=== PATIENT | male | born 1955 | race Hispanic/Latino ===

== ENCOUNTER 2017-08-09 12:00 | Outpatient (CLI) | payer BC | END 2017-08-09 12:01 | disposition home or self-care (01) | LOC: BICCT 12:00 | PROVIDERS: ATTEND Physician Assistant Medical | DX: M79.672 Pain in left foot (principal); M25.512 Pain in left shoulder; M19.012 Primary osteoarthritis, left shoulder; M19.072 Primary osteoarthritis, left ankle and foot ==

== ENCOUNTER 2019-01-09 09:12 | Outpatient (CLI) | payer BC ==
--- NOTE | 2019-01-09 11:11 | RAD ---
Radiograph right ribs 3 views: DATE: 01/09/2019 HISTORY: 63-year-old male with initial encounter for acute traumatic right rib pain from fall. FINDINGS: No fracture identified. IMPRESSION: Negative
== END 2019-01-09 09:13 | disposition home or self-care (01) ==
LOC: BICRAD 09:12
PROVIDERS: ATTEND Nurse Practitioner Family
DX: Z04.3 Encounter for examination and observation following other accident (principal); W19.XXXA Unspecified fall, initial encounter

== ENCOUNTER 2022-04-20 01:45 | Inpatient (IN) | payer BC, MEDICARE, SELFPAY ==
[2022-04-20] MEDS ORDERED: Ketorolac Tromethamine 30 MG/ML VIAL ONE (02:04)
[2022-04-20] MEDS ORDERED: Ondansetron PF 4 MG/2 ML Vial ONE (02:04)
[2022-04-20 02:15] LABS: Hemoglobin 15.3 g/dL (14.0-18.0); Mean Corpuscular HGB CONC 33.2 g/dL (32.0-36.0); Mean Corpuscular Hemoglobin 30.1 pg (27.0-31.0); Mean Corpuscular Volume 90.7 fl (78.0-98.0); Mean Platelet Volume 7.9 fL (7.4-10.4); Platelet Count 182 10x3/uL (130-400); RBC Distribution Width 12.1 % (11.5-14.5); Red Blood Cell (RBC) Count 5.07 mill/uL (4.70-6.10); White Blood Cell (WBC) Count 22.2 10x3/uL (4.8-10.8)
[2022-04-20 02:38] LABS: ALT (SGPT) 15 U/L (8-55); AST (SGOT) 18 U/L (5-34); Albumin 4.2 g/dL (3.4-4.8); Alkaline Phosphatase 106 U/L (40-110); Anion Gap 17 mmol/L (10-20); BUN (Urea Nitrogen) 16 mg/dL (8.4-25.7); Bilirubin, Total 2.7 mg/dL (0.2-1.2); Calc. Creatinine Clearance 0 mL/min (70-130); Calcium 9.7 mg/dL (7.8-10.44); Carbon Dioxide 24 mmol/L (23-31); Chloride 97 mmol/L (98-107); Estimated GFR 82; Globulin 3.7 g/dL (2.4-3.5); Glucose 298 mg/dL (80-115); Lipase 8 U/L (8-78); Potassium 3.8 mmol/L (3.5-5.1); Protein, Total 7.9 g/dL (5.8-8.1); Sodium 134 mmol/L (136-145)
[2022-04-20 02:51] LABS: Band 10 % (5-11); Lymphocytes 2 % (21-51); MDiff Complete? YES; Monocytes 12 % (0-10); Neutrophil 75 % (42-75); Platelet Morphology Comment Appears Adequate; RBC Morphology Normal; Reactive Lymphocytes 1 % (0-10)
[2022-04-20] MEDS ORDERED: Piperacillin/Tazobactam 3.375 GM VIAL ONE (04:16)
[2022-04-20] MEDS ORDERED: Ondansetron PF 4 MG/2 ML Vial IVP PRN (04:41)
[2022-04-20] MEDS ORDERED: Acetaminophen 325 MG TAB PO PRN (04:41)
[2022-04-20] MEDS ORDERED: Dextrose 5% in Water 1,000 ML IV PRN (04:42)
[2022-04-20] MEDS ORDERED: HumaLOG 300 UNITS/3 ML VIAL SC PRN (04:42)
[2022-04-20] MEDS ORDERED: Dextrose 50% Abboject 50 ML SYRINGE SLOW IVP PRN (04:42)
[2022-04-20] MEDS: Morphine 4 MG/ML VIAL SLOW IVP PRN ×3 (06:43→19:48)
[2022-04-20 07:24] VITALS: BMI 41.3
[2022-04-20] MEDS: Piperacillin/Tazobactam 3.375 GM in Sodium Chloride 0.9% 100 ML IVPB SCH ×3 (08:13→23:53)
[2022-04-20] MEDS ORDERED: Insulin Glargine 30 UNITS/0.3 ML VIAL SC SCH (10:45)
[2022-04-20] MEDS ORDERED: busPIRone HCl 10 MG TAB PO SCH (12:45)
[2022-04-20] MEDS ORDERED: HYDROcodone/Acetaminophen 7.5/325 mg Tablet PO PRN (15:51)
[2022-04-20] MEDS: Insulin Glargine 30 UNITS/0.3 ML VIAL SC SCH (21:15)
[2022-04-20] MEDS: busPIRone HCl 10 MG TAB PO SCH (21:15)
[2022-04-20] MEDS: Gabapentin 100 MG CAP PO SCH (21:15)
[2022-04-21] MEDS: Morphine 4 MG/ML VIAL SLOW IVP PRN ×3 (04:12→16:24)
[2022-04-21] MEDS: Levothyroxine Sodium 100 MCG TAB PO SCH (05:56)
[2022-04-21 07:16] LABS: ALT (SGPT) 32 U/L (8-55); AST (SGOT) 38 U/L (5-34); Albumin 3.7 g/dL (3.4-4.8); Alkaline Phosphatase 157 U/L (40-110); Anion Gap 17 mmol/L (10-20); BUN (Urea Nitrogen) 31 mg/dL (8.4-25.7); Bilirubin, Total 3.3 mg/dL (0.2-1.2); Calc. Creatinine Clearance 105 mL/min (70-130); Calcium 9.7 mg/dL (7.8-10.44); Carbon Dioxide 25 mmol/L (23-31); Chloride 97 mmol/L (98-107); Estimated GFR 63; Glucose 280 mg/dL (80-115); Potassium 3.9 mmol/L (3.5-5.1); Protein, Total 7.7 g/dL (5.8-8.1); Sodium 135 mmol/L (136-145)
[2022-04-21 07:24] LABS: Hemoglobin 15.7 g/dL (14.0-18.0); Mean Corpuscular HGB CONC 32.5 g/dL (32.0-36.0); Mean Corpuscular Volume 92.4 fl (78.0-98.0); Mean Platelet Volume 8.5 fL (7.4-10.4); Platelet Count 217 10x3/uL (130-400); Red Blood Cell (RBC) Count 5.23 mill/uL (4.70-6.10); White Blood Cell (WBC) Count 25.1 10x3/uL (4.8-10.8)
[2022-04-21] MEDS: Piperacillin/Tazobactam 3.375 GM in Sodium Chloride 0.9% 100 ML IVPB SCH ×3 (07:56→23:43)
[2022-04-21] MEDS: busPIRone HCl 10 MG TAB PO SCH ×2 (07:57→21:22)
[2022-04-21] MEDS: Insulin Glargine 30 UNITS/0.3 ML VIAL SC SCH ×2 (07:57→22:41)
[2022-04-21] MEDS ORDERED: Escitalopram Oxalate 10 mg Tablet PO SCH (09:00)
[2022-04-21] MEDS ORDERED: ALPRAZolam 0.25 MG TAB PO PRN (09:19)
[2022-04-21 09:44] LABS: Band 5 % (5-11); Lymphocytes 6 % (21-51); MDiff Complete? YES; Monocytes 4 % (0-10); Neutrophil 84 % (42-75); Platelet Morphology Comment Appears Adequate; Polychromasia SLIGHT = 2-3 cells (100X) (0-2/hpf)
[2022-04-21] MEDS: Sodium Chloride 0.9% 1,000 ML IV SCH (10:46)
[2022-04-21] MEDS ORDERED: Iopamidol 30 ML ONE (17:47)
[2022-04-21] MEDS ORDERED: Indomethacin 50 MG SUPP ONE ×2 (17:49→17:51)
[2022-04-21] MEDS ORDERED: fentaNYL PF 100 MCG/2 ML SYRINGE ONE (17:49)
[2022-04-21] MEDS ORDERED: Lidocaine 4% Topical Sol 50 ML BOT ONE (18:11)
[2022-04-21] MEDS ORDERED: Metoprolol Tartrate 5 MG/5 ML VIAL ONE (19:23)
[2022-04-21 19:46] LABS: Hemoglobin 14.7 g/dL (14.0-18.0); Mean Corpuscular HGB CONC 32.9 g/dL (32.0-36.0); Mean Corpuscular Volume 91.2 fl (78.0-98.0); Mean Platelet Volume 8.4 fL (7.4-10.4); Platelet Count 188 10x3/uL (130-400); White Blood Cell (WBC) Count 20.9 10x3/uL (4.8-10.8)
[2022-04-21 20:04] LABS: Anion Gap 11 mmol/L (10-20); BUN (Urea Nitrogen) 28 mg/dL (8.4-25.7); Calc. Creatinine Clearance 139 mL/min (70-130); Calcium 9.4 mg/dL (7.8-10.44); Carbon Dioxide 27 mmol/L (23-31); Chloride 102 mmol/L (98-107); Estimated GFR 89; Glucose 238 mg/dL (80-115); Magnesium 1.8 mg/dL (1.6-2.6); Potassium 3.8 mmol/L (3.5-5.1); Sodium 136 mmol/L (136-145)
[2022-04-21 20:07] LABS: Band 8 % (5-11); Lymphocytes 2 % (21-51); MDiff Complete? YES; Monocytes 6 % (0-10); Neutrophil 84 % (42-75); Platelet Morphology Comment Appears Adequate; RBC Morphology Normal
[2022-04-21] MEDS: Gabapentin 100 MG CAP PO SCH (21:22)
[2022-04-21] MEDS ORDERED: Magnesium 2 GM/50 ML(in water) 2 GM in Premix Bag 1 BAG IVPB SCH (21:45)
[2022-04-21] MEDS ORDERED: methylPREDNISolone Sod Succ/PF 125 MG/2 ML VIAL IVP SCH (23:15)
[2022-04-22 00:41] LABS: SARS-CoV-2 NAA Rapid Test Not Detected (NotDetected)
[2022-04-22] MEDS: Levothyroxine Sodium 100 MCG TAB PO SCH (06:03)
[2022-04-22 07:39] LABS: #Lymphocytes 0.5 thou/uL (1.20-3.40); #Monocytes 0.5 thou/uL (0.11-0.59); #Neutrophils 14.7 thou/uL (1.40-6.50); %Lymphocytes 3.1 % (21.0-51.0); %Neutrophils 93.9 % (42.0-75.0); Hemoglobin 14.3 g/dL (14.0-18.0); Mean Corpuscular HGB CONC 31.8 g/dL (32.0-36.0); Mean Corpuscular Hemoglobin 29.5 pg (27.0-31.0); Mean Corpuscular Volume 92.7 fl (78.0-98.0); Mean Platelet Volume 8.6 fL (7.4-10.4); Platelet Count 190 10x3/uL (130-400); RBC Distribution Width 11.9 % (11.5-14.5); Red Blood Cell (RBC) Count 4.85 mill/uL (4.70-6.10); White Blood Cell (WBC) Count 15.7 10x3/uL (4.8-10.8)
[2022-04-22 08:02] LABS: ALT (SGPT) 41 U/L (8-55); AST (SGOT) 66 U/L (5-34); Albumin 3.1 g/dL (3.4-4.8); Alkaline Phosphatase 202 U/L (40-110); Anion Gap 14 mmol/L (10-20); BUN (Urea Nitrogen) 30 mg/dL (8.4-25.7); Bilirubin, Total 2.3 mg/dL (0.2-1.2); Calc. Creatinine Clearance 139 mL/min (70-130); Calcium 9.1 mg/dL (7.8-10.44); Carbon Dioxide 25 mmol/L (23-31); Chloride 100 mmol/L (98-107); Estimated GFR 89; Globulin 3.7 g/dL (2.4-3.5); Glucose 300 mg/dL (80-115); Potassium 3.9 mmol/L (3.5-5.1); Protein, Total 6.8 g/dL (5.8-8.1); Sodium 135 mmol/L (136-145)
[2022-04-22] MEDS: Piperacillin/Tazobactam 3.375 GM in Sodium Chloride 0.9% 100 ML IVPB SCH ×2 (08:13→18:23)
[2022-04-22] MEDS ORDERED: Piperacillin/Tazobactam 3.375 GM VIAL ONE (08:15)
[2022-04-22] MEDS ORDERED: Sodium Chloride 0.9% 100 ML ONE ×2 (08:16→08:17)
[2022-04-22] MEDS: busPIRone HCl 10 MG TAB PO SCH ×2 (09:09→22:13)
[2022-04-22] MEDS ORDERED: Lisinopril 20 MG TAB PO SCH (09:30)
[2022-04-22] MEDS: Amiodarone 450 MG in Dextrose 5% in Water 250 ML IVPB SCH ×2 (10:46→20:00)
[2022-04-22] MEDS: Sodium Chloride 0.9% 1,000 ML IV SCH ×2 (14:18→14:22)
[2022-04-22] MEDS: Insulin Glargine 30 UNITS/0.3 ML VIAL SC SCH ×2 (14:21→22:13)
[2022-04-22] MEDS ORDERED: SUGAMMADEX SODIUM 200 MG/2 ML VIAL ONE ×2 (14:26→16:04)
[2022-04-22] MEDS ORDERED: fentaNYL PF 100 MCG/2 ML SYRINGE ONE (14:26)
[2022-04-22] MEDS ORDERED: Bupivacaine/Epinephrine 0.25% 30 ML VIAL ONE (14:35)
[2022-04-22] MEDS ORDERED: Lidocaine 1% (PF) 30 ML VIAL ONE (14:35)
[2022-04-22] MEDS ORDERED: Ioversol 68 % 50 ML VIAL ONE (14:35)
[2022-04-22] MEDS ORDERED: Vecuronium 10 MG VIAL ONE (14:49)
[2022-04-22] MEDS ORDERED: PROPOFOL 200 MG/20 ML VIAL ONE (14:49)
[2022-04-22] MEDS ORDERED: Ondansetron PF 4 MG/2 ML Vial ONE (14:49)
[2022-04-22] MEDS ORDERED: Rocuronium Bromide 10 MG/ML (10ML VIAL) ONE (14:49)
[2022-04-22] MEDS ORDERED: Promethazine HCl 25 MG/ML VIAL IM PRN (16:20)
[2022-04-22] MEDS ORDERED: Ondansetron HCl/PF 4 MG/2 ML Vial IVP PRN (16:20)
[2022-04-22] MEDS ORDERED: Promethazine HCl 25 MG/ML VIAL IVPB PRN (16:20)
[2022-04-22] MEDS ORDERED: HYDROmorphone 2 MG/ML VIAL SLOW IVP PRN (16:20)
[2022-04-22] MEDS ORDERED: FENTANYL 50 MCG/ML 1 ML VIAL ONE (16:30)
[2022-04-22] MEDS: HumaLOG 300 UNITS/3 ML VIAL SC PRN (18:23)
[2022-04-22] MEDS: Gabapentin 100 MG CAP PO SCH (22:13)
[2022-04-23] MEDS: Piperacillin/Tazobactam 3.375 GM in Sodium Chloride 0.9% 100 ML IVPB SCH ×2 (01:04→08:22)
[2022-04-23 04:49] LABS: #Lymphocytes 0.5 thou/uL (1.20-3.40); #Monocytes 0.8 thou/uL (0.11-0.59); %Eosinophils 0.1 % (0.0-10.0); %Lymphocytes 3.3 % (21.0-51.0); %Monocytes 5.2 % (0.0-10.0); %Neutrophils 91.4 % (42.0-75.0); Hemoglobin 13.3 g/dL (14.0-18.0); Mean Corpuscular HGB CONC 31.3 g/dL (32.0-36.0); Mean Corpuscular Hemoglobin 28.6 pg (27.0-31.0); Mean Corpuscular Volume 91.5 fl (78.0-98.0); Mean Platelet Volume 8.4 fL (7.4-10.4); Platelet Count 224 10x3/uL (130-400); RBC Distribution Width 11.9 % (11.5-14.5); Red Blood Cell (RBC) Count 4.66 mill/uL (4.70-6.10); White Blood Cell (WBC) Count 15.3 10x3/uL (4.8-10.8)
[2022-04-23 05:12] LABS: ALT (SGPT) 58 U/L (8-55); AST (SGOT) 86 U/L (5-34); Albumin 3.2 g/dL (3.4-4.8); Alkaline Phosphatase 212 U/L (40-110); Anion Gap 12 mmol/L (10-20); BUN (Urea Nitrogen) 32 mg/dL (8.4-25.7); Bilirubin, Total 1.2 mg/dL (0.2-1.2); Calc. Creatinine Clearance 131 mL/min (70-130); Calcium 8.9 mg/dL (7.8-10.44); Carbon Dioxide 27 mmol/L (23-31); Chloride 102 mmol/L (98-107); Estimated GFR 83; Globulin 3.5 g/dL (2.4-3.5); Glucose 346 mg/dL (80-115); Magnesium 2.3 mg/dL (1.6-2.6); Potassium 3.6 mmol/L (3.5-5.1); Protein, Total 6.7 g/dL (5.8-8.1); Sodium 137 mmol/L (136-145)
[2022-04-23] MEDS: Sodium Chloride 0.9% 1,000 ML IV SCH ×2 (05:57→08:24)
[2022-04-23] MEDS: Levothyroxine Sodium 100 MCG TAB PO SCH (05:58)
[2022-04-23] MEDS: HumaLOG 300 UNITS/3 ML VIAL SC PRN ×2 (05:58→11:02)
[2022-04-23] MEDS ORDERED: FLU VACC QS2022-23(65YR UP)/PF 240 MCG/0.7 ML SYRINGE IM ONE (08:15)
[2022-04-23] MEDS: busPIRone HCl 10 MG TAB PO SCH (08:29)
[2022-04-23] MEDS ORDERED: Amiodarone 200 MG TAB PO SCH (09:00)
[2022-04-23] MEDS ORDERED: Aspirin 81 mg Enteric Coated Tablet PO SCH (09:00)
[2022-04-23] MEDS ORDERED: Lisinopril 20 MG TAB PO SCH (09:00)
[2022-04-23] MEDS ORDERED: Insulin Glargine 30 UNITS/0.3 ML VIAL SC SCH (09:00)
[2022-04-23] MEDS ORDERED: Potassium Chloride 20 MEQ TAB PO SCH (09:00)
[2022-04-23 12:04] VITALS: BP 151/70; TEMP 98
[2022-04-23] MEDS ORDERED: HumaLOG 300 UNITS/3 ML VIAL SC SCH (16:30)
== END 2022-04-23 15:23 | disposition home or self-care (01) | DRG 418 ==
LOC: ERS 01:45 → T4-B 04:41 → OBSVTOIN 04-21 08:33 → PACU-TCU 04-21 19:55 → 2SW 04-22 17:44
PROVIDERS: ADMIT Internal Medicine; ATTEND Internal Medicine
PROC: 0FT44ZZ Resection of Gallbladder, Percutaneous Endoscopic Approach (ICD-10-PCS; principal; 2022-04-22)
PROC: BF101ZZ Fluoroscopy of Bile Ducts using Low Osmolar Contrast (ICD-10-PCS; 2022-04-22)
PROC: 3E033XZ Introduction of Vasopressor into Peripheral Vein, Percutaneous Approach (ICD-10-PCS; 2022-04-22)
DX: K80.00 Calculus of gallbladder with acute cholecystitis without obstruction (principal); Z68.41 Body mass index [BMI] 40.0-44.9, adult; I25.10 Atherosclerotic heart disease of native coronary artery without angina pectoris; I10 Essential (primary) hypertension; E78.5 Hyperlipidemia, unspecified; E03.9 Hypothyroidism, unspecified; F32.A Depression, unspecified; E66.01 Morbid (severe) obesity due to excess calories; K83.8 Other specified diseases of biliary tract; E11.65 Type 2 diabetes mellitus with hyperglycemia; I48.0 Paroxysmal atrial fibrillation; E87.6 Hypokalemia; Z20.822 Contact with and (suspected) exposure to COVID-19; Z88.8 Allergy status to other drugs, medicaments and biological substances; Z91.013 Allergy to seafood; Z79.82 Long term (current) use of aspirin; Z79.899 Other long term (current) drug therapy; Z90.49 Acquired absence of other specified parts of digestive tract; Z98.890 Other specified postprocedural states; Z95.5 Presence of coronary angioplasty implant and graft
CPT/HCPCS: 36415; 36416; 47532; 76705; 80053; 83690; 83735; 83880; 84443; 85025; 88304; 93005; 93010; 94640; 96375; 96376; C1889; G0378; J0282; J1610; J1815; J1885; J2001; J2270; J2405; J2543; J2704; J2930; J3010; J3475; J3490; J7050; J7070; J7620; Q9967; U0002

== ENCOUNTER 2022-06-13 06:35 | Inpatient (IN) | payer MEDICARE ==
[2022-06-13 07:56] LABS: ALT (SGPT) 17 U/L (8-55); AST (SGOT) 20 U/L (5-34); Albumin 3.6 g/dL (3.4-4.8); Alkaline Phosphatase 105 U/L (40-110); Anion Gap 17 mmol/L (10-20); BUN (Urea Nitrogen) 38 mg/dL (8.4-25.7); Calc. Creatinine Clearance 0 mL/min (70-130); Calcium 9.1 mg/dL (7.8-10.44); Carbon Dioxide 20 mmol/L (23-31); Chloride 97 mmol/L (98-107); Estimated GFR 60; Globulin 3.4 g/dL (2.4-3.5); Glucose 224 mg/dL (80-115); Sodium 130 mmol/L (136-145)
[2022-06-13] MEDS ORDERED: Aspirin Chewable 81 MG TAB ONE (08:56)
[2022-06-13 09:01] LABS: Hemoglobin 13.1 g/dL (14.0-18.0); Mean Corpuscular HGB CONC 33.7 g/dL (32.0-36.0); Mean Corpuscular Hemoglobin 30.5 pg (27.0-31.0); Mean Corpuscular Volume 90.5 fl (78.0-98.0); RBC Distribution Width 13.1 % (11.5-14.5)
[2022-06-13 09:19] LABS: Band 12 % (5-11); Eosinophils 2 % (0-10); Lymphocytes 6 % (21-51); MDiff Complete? YES; Monocytes 10 % (0-10); Neutrophil 68 % (42-75); Platelet Morphology Comment PLT clumps seen-LOW; Reactive Lymphocytes 2 % (0-10); Vacuoles SLIGHT; White Blood Cell (WBC) Count 12.8 10x3/uL (4.8-10.8)
[2022-06-13] MEDS ORDERED: HYDROcodone/Acetaminophen 5/325 mg Tablet PO PRN (09:59)
[2022-06-13] MEDS ORDERED: Senokot S 8.6-50 MG TAB PO PRN (09:59)
[2022-06-13] MEDS ORDERED: Dextrose 50% Abboject 50 ML SYRINGE SLOW IVP PRN (09:59)
[2022-06-13] MEDS ORDERED: Dextrose 5% in Water 1,000 ML IV PRN (09:59)
[2022-06-13] MEDS: metFORMIN 500 MG TAB PO SCH (16:13)
[2022-06-13] MEDS: HumaLOG 300 UNITS/3 ML VIAL SC PRN (17:20)
[2022-06-13] MEDS: Amiodarone 200 MG TAB PO SCH (21:17)
[2022-06-13] MEDS: Famotidine 20 MG TAB PO SCH (21:17)
[2022-06-13] MEDS: Apixaban 5 MG TAB PO SCH (21:17)
[2022-06-13] MEDS: busPIRone HCl 10 MG TAB PO SCH (21:17)
[2022-06-13] MEDS: Rosuvastatin 20 MG TAB PO SCH (21:17)
[2022-06-13] MEDS: Gabapentin 100 MG CAP PO SCH (21:17)
[2022-06-13] MEDS: Insulin Glargine 30 UNITS/0.3 ML VIAL SC SCH (21:22)
[2022-06-14 05:59] LABS: Anion Gap 14 mmol/L (10-20); BUN (Urea Nitrogen) 33 mg/dL (8.4-25.7); Calc. Creatinine Clearance 135 mL/min (70-130); Calcium 8.8 mg/dL (7.8-10.44); Carbon Dioxide 23 mmol/L (23-31); Cardiac Risk 8.5 (Less than 4.5); Chloride 100 mmol/L (98-107); Cholesterol 68 mg/dl (< 200 Desired); Estimated GFR 89; Glucose 229 mg/dL (80-115); HDL Cholesterol 8 mg/dL (>60 Neg Risk); LDL Cholesterol, Calculated 32 mg/dL; Potassium 3.8 mmol/L (3.5-5.1); Sodium 133 mmol/L (136-145); Triglycerides 142 mg/dL (Less than 150)
[2022-06-14] MEDS: HumaLOG 300 UNITS/3 ML VIAL SC PRN ×2 (06:05→11:56)
[2022-06-14 06:34] LABS: Band 4 % (5-11); Hemoglobin 13.6 g/dL (14.0-18.0); Large Platelets SLIGHT; Lymphocytes 4 % (21-51); MDiff Complete? YES; Mean Corpuscular HGB CONC 33.1 g/dL (32.0-36.0); Mean Corpuscular Hemoglobin 29.8 pg (27.0-31.0); Mean Corpuscular Volume 89.9 fl (78.0-98.0); Monocytes 6 % (0-10); Neutrophil 86 % (42-75); Platelet Count 78 10x3/uL (130-400); Platelet Morphology Comment Appears Decreased; RBC Distribution Width 13.3 % (11.5-14.5); RBC Morphology Normal; Red Blood Cell (RBC) Count 4.57 mill/uL (4.70-6.10); White Blood Cell (WBC) Count 9.9 10x3/uL (4.8-10.8)
[2022-06-14] MEDS ORDERED: Amiodarone 200 MG TAB PO SCH (09:00)
[2022-06-14 09:09] LABS: ALT (SGPT) 41 U/L (8-55); AST (SGOT) 49 U/L (5-34); Alkaline Phosphatase 127 U/L (40-110); Bilirubin, Direct 0.4 mg/dL (0.1-0.3); Bilirubin, Total 0.8 mg/dL (0.2-1.2); Protein, Total 6.4 g/dL (5.8-8.1)
[2022-06-14] MEDS: metFORMIN 500 MG TAB PO SCH ×2 (09:13→16:39)
[2022-06-14] MEDS: Insulin Glargine 30 UNITS/0.3 ML VIAL SC SCH ×2 (09:13→21:11)
[2022-06-14] MEDS: Amiodarone 200 MG TAB PO SCH ×2 (09:13→21:10)
[2022-06-14] MEDS: Apixaban 5 MG TAB PO SCH ×2 (09:14→21:10)
[2022-06-14] MEDS: Famotidine 20 MG TAB PO SCH ×2 (09:15→21:10)
[2022-06-14] MEDS: Levothyroxine Sodium 100 MCG TAB PO SCH (09:15)
[2022-06-14] MEDS: Escitalopram Oxalate 10 mg Tablet PO SCH (09:15)
[2022-06-14] MEDS: busPIRone HCl 10 MG TAB PO SCH ×2 (09:15→21:10)
[2022-06-14] MEDS: Aspirin 81 mg Enteric Coated Tablet PO SCH (09:17)
[2022-06-14] MEDS ORDERED: Piperacillin/Tazobactam 3.375 GM in Sodium Chloride 0.9% 100 ML IVPB SCH ×2 (09:29→11:00)
[2022-06-14] MEDS ORDERED: Lactated Ringer's 500 ML IV SCH (09:30)
[2022-06-14] MEDS: Ondansetron PF 4 MG/2 ML Vial IVP PRN (09:43)
[2022-06-14 10:23] LABS: Bacteria/HPF 4+ HPF (None Seen); Bilirubin Negative (Negative); Blood, Urine 2+ (Negative); CAUTI Indications for Culture Fever or rigors; Clarity Turbid (Clear); Glucose, Urine (Dipstick) 100 mg/dL (Negative); Ketone, Urine Trace mg/dL (Negative); Leukocyte 500 Leu/uL (Negative); Nitrite 2+ (Negative); Protein, Urine (Dipstick) 70 mg/dL (Neg-Trace); Specific Gravity, Urine 1.017 (1.002-1.036); Squamous Epithelial None Seen HPF (0-3); Urobilinogen Normal mg/dL (Less than 2); WBC/HPF Greater than 50 HPF (0-3); pH, Urine 5.5 (5.0-9.0)
[2022-06-14 10:25] LABS: Urine Culture Reflex Yes Yes
[2022-06-14] MEDS: Lactated Ringer's 1,000 ML IV SCH ×2 (10:38→21:08)
[2022-06-14] MEDS: Acetaminophen 325 MG TAB PO PRN (17:53)
[2022-06-14] MEDS: Piperacillin/Tazobactam 3.375 GM in Sodium Chloride 0.9% 100 ML IVPB SCH (18:26)
[2022-06-14] MEDS: Rosuvastatin 20 MG TAB PO SCH (21:10)
[2022-06-14] MEDS: Gabapentin 100 MG CAP PO SCH (21:10)
[2022-06-15] MEDS: Acetaminophen 325 MG TAB PO PRN ×2 (03:41→23:24)
[2022-06-15] MEDS: Piperacillin/Tazobactam 3.375 GM in Sodium Chloride 0.9% 100 ML IVPB SCH ×3 (03:41→20:42)
[2022-06-15] MEDS ORDERED: Metoprolol Tartrate 5 MG/5 ML VIAL IVP SCH ×2 (04:00→23:30)
[2022-06-15 04:37] LABS: Hemoglobin A1c 7.9 % (4.0-6.0)
[2022-06-15 04:48] LABS: Anion Gap 13 mmol/L (10-20); BUN (Urea Nitrogen) 27 mg/dL (8.4-25.7); Calc. Creatinine Clearance 109 mL/min (70-130); Calcium 8.7 mg/dL (7.8-10.44); Carbon Dioxide 24 mmol/L (23-31); Chloride 99 mmol/L (98-107); Estimated GFR 71; Glucose 125 mg/dL (80-115); Magnesium 1.4 mg/dL (1.6-2.6); Potassium 3.2 mmol/L (3.5-5.1); Sodium 133 mmol/L (136-145)
[2022-06-15 05:15] LABS: Band 18 % (5-11); Hemoglobin 14.1 g/dL (14.0-18.0); Lymphocytes 1 % (21-51); MDiff Complete? YES; Mean Corpuscular HGB CONC 33.8 g/dL (32.0-36.0); Mean Corpuscular Hemoglobin 30.2 pg (27.0-31.0); Mean Corpuscular Volume 89.3 fl (78.0-98.0); Mean Platelet Volume 10.4 fL (7.4-10.4); Monocytes 18 % (0-10); Neutrophil 62 % (42-75); Platelet Count 63 10x3/uL (130-400); Platelet Morphology Comment Appears Decreased; RBC Distribution Width 13.5 % (11.5-14.5); RBC Morphology Normal; Reactive Lymphocytes 1 % (0-10); Red Blood Cell (RBC) Count 4.68 mill/uL (4.70-6.10); White Blood Cell (WBC) Count 6.7 10x3/uL (4.8-10.8)
[2022-06-15] MEDS: Levothyroxine Sodium 100 MCG TAB PO SCH (07:43)
[2022-06-15] MEDS ORDERED: Magnesium 2 GM/50 ML(in water) 2 GM in Premix Bag 1 BAG IVPB SCH (08:45)
[2022-06-15] MEDS ORDERED: Electrolyte Replacement Protocol 1 EACH FS SCH (08:45)
[2022-06-15] MEDS ORDERED: Potassium Chloride 20 MEQ TAB PO SCH (08:45)
[2022-06-15] MEDS: metFORMIN 500 MG TAB PO SCH ×2 (09:16→16:21)
[2022-06-15] MEDS: Famotidine 20 MG TAB PO SCH ×2 (09:17→20:42)
[2022-06-15] MEDS: Apixaban 5 MG TAB PO SCH ×2 (09:18→20:42)
[2022-06-15] MEDS: busPIRone HCl 10 MG TAB PO SCH ×2 (09:18→20:42)
[2022-06-15] MEDS: Amiodarone 200 MG TAB PO SCH ×2 (09:18→20:42)
[2022-06-15] MEDS: Escitalopram Oxalate 10 mg Tablet PO SCH (09:18)
[2022-06-15] MEDS: Aspirin 81 mg Enteric Coated Tablet PO SCH (09:18)
[2022-06-15] MEDS: Insulin Glargine 30 UNITS/0.3 ML VIAL SC SCH ×2 (09:20→20:57)
[2022-06-15] MEDS ORDERED: Ipratropium/Albuterol 3 ML NEB NEB PRN (20:29)
[2022-06-15] MEDS ORDERED: Melatonin 3 MG TAB PO SCH (20:30)
[2022-06-15] MEDS ORDERED: Ipratropium/Albuterol 3 ML NEB NEB SCH (20:30)
[2022-06-15] MEDS: Gabapentin 100 MG CAP PO SCH (20:41)
[2022-06-15] MEDS: Rosuvastatin 20 MG TAB PO SCH (20:42)
[2022-06-16 00:25] LABS: Hemoglobin 14.3 g/dL (14.0-18.0); Mean Corpuscular Hemoglobin 31.6 pg (27.0-31.0); Mean Corpuscular Volume 90.3 fl (78.0-98.0); Mean Platelet Volume 9.8 fL (7.4-10.4); Platelet Count 81 10x3/uL (130-400); RBC Distribution Width 13.9 % (11.5-14.5); Red Blood Cell (RBC) Count 4.52 mill/uL (4.70-6.10); White Blood Cell (WBC) Count 8.5 10x3/uL (4.8-10.8)
[2022-06-16 00:36] LABS: Lactic Acid 2.6 mmol/L (0.5-2.2)
[2022-06-16 00:51] LABS: Band 9 % (5-11); Eosinophils 1 % (0-10); Lymphocytes 9 % (21-51); MDiff Complete? YES; Monocytes 10 % (0-10); Neutrophil 71 % (42-75); Platelet Morphology Comment Appears Decreased; RBC Morphology Normal
[2022-06-16 01:04] LABS: Anion Gap 17 mmol/L (10-20); BUN (Urea Nitrogen) 32 mg/dL (8.4-25.7); Calc. Creatinine Clearance 66 mL/min (70-130); Calcium 8.9 mg/dL (7.8-10.44); Carbon Dioxide 21 mmol/L (23-31); Chloride 99 mmol/L (98-107); Estimated GFR 39; Glucose 79 mg/dL (80-115); Magnesium 1.8 mg/dL (1.6-2.6); Potassium 3.9 mmol/L (3.5-5.1); Sodium 133 mmol/L (136-145)
[2022-06-16] MEDS ORDERED: Sodium Chloride 0.9% 1,000 ML IV SCH (01:30)
[2022-06-16] MEDS ORDERED: Magnesium 2 GM/50 ML(in water) 2 GM in Premix Bag 1 BAG IVPB SCH (01:30)
[2022-06-16 01:45] LABS: Phosphorus 1.3 mg/dL (2.3-4.7)
[2022-06-16] MEDS ORDERED: PHOS-NAK 1 PKT PACK PO SCH ×2 (02:30→06:30)
[2022-06-16] MEDS: Piperacillin/Tazobactam 3.375 GM in Sodium Chloride 0.9% 100 ML IVPB SCH ×3 (03:03→18:57)
[2022-06-16] MEDS: Acetaminophen 325 MG TAB PO PRN (03:03)
[2022-06-16] MEDS: Levothyroxine Sodium 100 MCG TAB PO SCH (07:30)
[2022-06-16] MEDS: metFORMIN 500 MG TAB PO SCH ×2 (08:59→17:14)
[2022-06-16] MEDS: Escitalopram Oxalate 10 mg Tablet PO SCH (09:00)
[2022-06-16] MEDS: Famotidine 20 MG TAB PO SCH ×2 (09:00→21:26)
[2022-06-16] MEDS: Apixaban 5 MG TAB PO SCH ×2 (09:00→21:25)
[2022-06-16] MEDS: busPIRone HCl 10 MG TAB PO SCH ×2 (09:00→21:25)
[2022-06-16] MEDS: Amiodarone 200 MG TAB PO SCH ×2 (09:00→21:25)
[2022-06-16] MEDS: Aspirin 81 mg Enteric Coated Tablet PO SCH (09:00)
[2022-06-16] MEDS: PHOS-NAK 1 PKT PACK PO SCH ×3 (09:01→18:57)
[2022-06-16] MEDS: Insulin Glargine 30 UNITS/0.3 ML VIAL SC SCH ×2 (10:08→21:50)
[2022-06-16] MEDS: Rosuvastatin 20 MG TAB PO SCH (21:25)
[2022-06-16] MEDS: Gabapentin 100 MG CAP PO SCH (21:26)
[2022-06-17] MEDS: Piperacillin/Tazobactam 3.375 GM in Sodium Chloride 0.9% 100 ML IVPB SCH ×3 (02:51→18:41)
[2022-06-17 06:14] LABS: Magnesium 2.4 mg/dL (1.6-2.6)
[2022-06-17] MEDS: Escitalopram Oxalate 10 mg Tablet PO SCH (09:03)
[2022-06-17] MEDS: Amiodarone 200 MG TAB PO SCH ×2 (09:04→22:10)
[2022-06-17] MEDS: Levothyroxine Sodium 100 MCG TAB PO SCH (09:04)
[2022-06-17] MEDS: Aspirin 81 mg Enteric Coated Tablet PO SCH (09:04)
[2022-06-17] MEDS: metFORMIN 500 MG TAB PO SCH ×2 (09:04→18:41)
[2022-06-17] MEDS: Famotidine 20 MG TAB PO SCH ×2 (09:04→22:10)
[2022-06-17] MEDS: busPIRone HCl 10 MG TAB PO SCH ×2 (09:05→22:11)
[2022-06-17] MEDS: Apixaban 5 MG TAB PO SCH ×2 (09:05→22:09)
[2022-06-17] MEDS: Insulin Glargine 30 UNITS/0.3 ML VIAL SC SCH ×2 (10:44→22:21)
[2022-06-17] MEDS: Ondansetron PF 4 MG/2 ML Vial IVP PRN (11:19)
[2022-06-17] MEDS: Gabapentin 100 MG CAP PO SCH (22:09)
[2022-06-17] MEDS: Rosuvastatin 20 MG TAB PO SCH (22:11)
[2022-06-18] MEDS: Piperacillin/Tazobactam 3.375 GM in Sodium Chloride 0.9% 100 ML IVPB SCH ×2 (03:33→10:28)
[2022-06-18] MEDS: Levothyroxine Sodium 100 MCG TAB PO SCH (05:35)
[2022-06-18] MEDS: Famotidine 20 MG TAB PO SCH (09:52)
[2022-06-18] MEDS: Aspirin 81 mg Enteric Coated Tablet PO SCH (09:55)
[2022-06-18] MEDS: Apixaban 5 MG TAB PO SCH ×2 (09:55→20:38)
[2022-06-18] MEDS: busPIRone HCl 10 MG TAB PO SCH ×2 (09:55→20:39)
[2022-06-18] MEDS: Escitalopram Oxalate 10 mg Tablet PO SCH (09:55)
[2022-06-18] MEDS: Amiodarone 200 MG TAB PO SCH ×2 (09:56→20:39)
[2022-06-18] MEDS: metFORMIN 500 MG TAB PO SCH (09:56)
[2022-06-18] MEDS: Insulin Glargine 30 UNITS/0.3 ML VIAL SC SCH ×2 (09:58→20:40)
[2022-06-18 12:53] LABS: Hemoglobin 12.9 g/dL (14.0-18.0); Mean Corpuscular HGB CONC 33.6 g/dL (32.0-36.0); Mean Corpuscular Hemoglobin 29.7 pg (27.0-31.0); Mean Corpuscular Volume 88.4 fl (78.0-98.0); Mean Platelet Volume 9.3 fL (7.4-10.4); Platelet Count 150 10x3/uL (130-400); RBC Distribution Width 14.1 % (11.5-14.5); Red Blood Cell (RBC) Count 4.34 mill/uL (4.70-6.10); White Blood Cell (WBC) Count 9.8 10x3/uL (4.8-10.8)
[2022-06-18 12:54] LABS: Band 9 % (5-11); Eosinophils 3 % (0-10); Lymphocytes 10 % (21-51); MDiff Complete? YES; Monocytes 15 % (0-10); Neutrophil 62 % (42-75); Platelet Morphology Comment Appears Adequate; Polychromasia SLIGHT = 2-3 cells (100X) (0-2/hpf); Reactive Lymphocytes 1 % (0-10)
[2022-06-18 12:56] LABS: ALT (SGPT) 35 U/L (8-55); AST (SGOT) 49 U/L (5-34); Albumin 2.6 g/dL (3.4-4.8); Alkaline Phosphatase 314 U/L (40-110); Anion Gap 14 mmol/L (10-20); BUN (Urea Nitrogen) 51 mg/dL (8.4-25.7); Bilirubin, Total 1.2 mg/dL (0.2-1.2); Calc. Creatinine Clearance 25 mL/min (70-130); Calcium 8.5 mg/dL (7.8-10.44); Carbon Dioxide 22 mmol/L (23-31); Chloride 101 mmol/L (98-107); Estimated GFR 12; Globulin 3.8 g/dL (2.4-3.5); Glucose 90 mg/dL (80-115); Potassium 4.4 mmol/L (3.5-5.1); Protein, Total 6.4 g/dL (5.8-8.1); Sodium 133 mmol/L (136-145)
[2022-06-18] MEDS: Sodium Chloride 0.9% 1,000 ML IV SCH (14:45)
[2022-06-18] MEDS: Gabapentin 100 MG CAP PO SCH (20:38)
[2022-06-18] MEDS: cefTRIAXone\\ROCEPHIN 1 GM in Sodium Chloride 0.9% 100 ML IVPB SCH (20:39)
[2022-06-18] MEDS: Rosuvastatin 20 MG TAB PO SCH (20:39)
[2022-06-18] MEDS ORDERED: Piperacillin/Tazobactam 3.375 GM in Sodium Chloride 0.9% 100 ML IVPB SCH (23:00)
[2022-06-19] MEDS: Sodium Chloride 0.9% 1,000 ML IV SCH (05:16)
[2022-06-19] MEDS: Levothyroxine Sodium 100 MCG TAB PO SCH (05:16)
[2022-06-19 06:01] LABS: #Eosinphils 0.2 thou/uL (0.0-0.7); #Lymphocytes 1.2 thou/uL (1.20-3.40); #Monocytes 1.2 thou/uL (0.11-0.59); #Neutrophils 8.7 thou/uL (1.40-6.50); %Eosinophils 1.4 % (0.0-10.0); %Lymphocytes 10.5 % (21.0-51.0); %Monocytes 10.5 % (0.0-10.0); %Neutrophils 77.6 % (42.0-75.0); Hemoglobin 12.8 g/dL (14.0-18.0); Mean Corpuscular HGB CONC 33.4 g/dL (32.0-36.0); Mean Corpuscular Hemoglobin 29.7 pg (27.0-31.0); Mean Platelet Volume 9.1 fL (7.4-10.4); Platelet Count 161 10x3/uL (130-400); RBC Distribution Width 14.2 % (11.5-14.5); Red Blood Cell (RBC) Count 4.32 mill/uL (4.70-6.10); White Blood Cell (WBC) Count 11.2 10x3/uL (4.8-10.8)
[2022-06-19 06:39] LABS: ALT (SGPT) 32 U/L (8-55); AST (SGOT) 42 U/L (5-34); Albumin 2.6 g/dL (3.4-4.8); Alkaline Phosphatase 328 U/L (40-110); Anion Gap 17 mmol/L (10-20); BUN (Urea Nitrogen) 49 mg/dL (8.4-25.7); BUN/Creatinine Ratio 8.83; Bilirubin, Total 0.8 mg/dL (0.2-1.2); Calc. Creatinine Clearance 23 mL/min (70-130); Calcium 8.4 mg/dL (7.8-10.44); Carbon Dioxide 19 mmol/L (23-31); Chloride 102 mmol/L (98-107); Estimated GFR 11; Glucose 138 mg/dL (80-115); Phosphorus 3.7 mg/dL (2.3-4.7); Potassium 4.5 mmol/L (3.5-5.1); Protein, Total 6.6 g/dL (5.8-8.1); Sodium 133 mmol/L (136-145)
[2022-06-19] MEDS: Aspirin 81 mg Enteric Coated Tablet PO SCH (09:08)
[2022-06-19] MEDS: Apixaban 5 MG TAB PO SCH ×2 (09:09→21:33)
[2022-06-19] MEDS: busPIRone HCl 10 MG TAB PO SCH ×2 (09:09→21:33)
[2022-06-19] MEDS: Escitalopram Oxalate 10 mg Tablet PO SCH (09:09)
[2022-06-19] MEDS: Insulin Glargine 30 UNITS/0.3 ML VIAL SC SCH ×2 (09:09→21:34)
[2022-06-19] MEDS: Amiodarone 200 MG TAB PO SCH ×2 (09:09→21:33)
[2022-06-19] MEDS: Famotidine 20 MG TAB PO SCH (09:09)
[2022-06-19 13:55] VITALS: BMI 40.6
[2022-06-19] MEDS ORDERED: Sodium Bicarbonate 150 MEQ in Dextrose 5% in Water 1,000 ML IV SCH (14:00)
[2022-06-19] MEDS ORDERED: NIFEdipine XL 60 MG TAB PO SCH (20:30)
[2022-06-19] MEDS: Rosuvastatin 20 MG TAB PO SCH (21:32)
[2022-06-19] MEDS: Gabapentin 100 MG CAP PO SCH (21:33)
[2022-06-19] MEDS: cefTRIAXone\\ROCEPHIN 1 GM in Sodium Chloride 0.9% 100 ML IVPB SCH (21:33)
[2022-06-19] MEDS: HumaLOG 300 UNITS/3 ML VIAL SC PRN (22:55)
[2022-06-20] MEDS: Levothyroxine Sodium 100 MCG TAB PO SCH (06:02)
[2022-06-20 06:04] LABS: Albumin 2.6 g/dL (3.4-4.8); Anion Gap 15 mmol/L (10-20); BUN (Urea Nitrogen) 48 mg/dL (8.4-25.7); BUN/Creatinine Ratio 7.89; Calc. Creatinine Clearance 21 mL/min (70-130); Calcium 8.4 mg/dL (7.8-10.44); Carbon Dioxide 21 mmol/L (23-31); Chloride 99 mmol/L (98-107); Estimated GFR 10; Glucose 282 mg/dL (80-115); Phosphorus 3.8 mg/dL (2.3-4.7); Potassium 3.9 mmol/L (3.5-5.1); Sodium 131 mmol/L (136-145)
[2022-06-20] MEDS: NIFEdipine XL 60 MG TAB PO SCH (08:51)
[2022-06-20] MEDS: Escitalopram Oxalate 10 mg Tablet PO SCH (08:51)
[2022-06-20] MEDS: Famotidine 20 MG TAB PO SCH (08:51)
[2022-06-20] MEDS: Aspirin 81 mg Enteric Coated Tablet PO SCH (08:52)
[2022-06-20] MEDS: Apixaban 5 MG TAB PO SCH ×2 (08:52→21:30)
[2022-06-20] MEDS: Amiodarone 200 MG TAB PO SCH ×2 (08:52→21:29)
[2022-06-20] MEDS: Insulin Glargine 30 UNITS/0.3 ML VIAL SC SCH (08:52)
[2022-06-20] MEDS: busPIRone HCl 10 MG TAB PO SCH ×2 (08:52→21:29)
[2022-06-20] MEDS ORDERED: Insulin Glargine 30 UNITS/0.3 ML VIAL SC SCH ×2 (10:00→21:00)
[2022-06-20] MEDS ORDERED: Sodium Chloride 0.9% 1,000 ML IV SCH (20:45)
[2022-06-20] MEDS: Gabapentin 100 MG CAP PO SCH (21:29)
[2022-06-20] MEDS: Rosuvastatin 20 MG TAB PO SCH (21:29)
[2022-06-20] MEDS: cefTRIAXone\\ROCEPHIN 1 GM in Sodium Chloride 0.9% 100 ML IVPB SCH (21:30)
[2022-06-21] MEDS ORDERED: Sodium Chloride 0.9% 1,000 ML IV SCH (00:17)
[2022-06-21 05:48] LABS: #Eosinphils 0.2 thou/uL (0.0-0.7); #Lymphocytes 1.1 thou/uL (1.20-3.40); #Monocytes 1.2 thou/uL (0.11-0.59); #Neutrophils 7.7 thou/uL (1.40-6.50); %Basophils 0.5 % (0.0-1.0); %Eosinophils 1.9 % (0.0-10.0); %Lymphocytes 10.5 % (21.0-51.0); %Monocytes 11.6 % (0.0-10.0); %Neutrophils 75.6 % (42.0-75.0); Hemoglobin 11.7 g/dL (14.0-18.0); Mean Corpuscular HGB CONC 33.4 g/dL (32.0-36.0); Mean Corpuscular Hemoglobin 29.3 pg (27.0-31.0); Mean Corpuscular Volume 87.8 fl (78.0-98.0); Mean Platelet Volume 8.2 fL (7.4-10.4); Platelet Count 166 10x3/uL (130-400); RBC Distribution Width 13.6 % (11.5-14.5); White Blood Cell (WBC) Count 10.2 10x3/uL (4.8-10.8)
[2022-06-21 05:58] LABS: Anion Gap 13 mmol/L (10-20); BUN (Urea Nitrogen) 48 mg/dL (8.4-25.7); Calc. Creatinine Clearance 21 mL/min (70-130); Calcium 8.1 mg/dL (7.8-10.44); Carbon Dioxide 21 mmol/L (23-31); Chloride 100 mmol/L (98-107); Estimated GFR 9; Glucose 260 mg/dL (80-115); Potassium 3.9 mmol/L (3.5-5.1); Sodium 130 mmol/L (136-145)
[2022-06-21] MEDS: Levothyroxine Sodium 100 MCG TAB PO SCH (06:01)
[2022-06-21] MEDS: Amiodarone 200 MG TAB PO SCH (08:44)
[2022-06-21] MEDS: Escitalopram Oxalate 10 mg Tablet PO SCH (08:45)
[2022-06-21] MEDS: busPIRone HCl 10 MG TAB PO SCH ×2 (08:45→21:39)
[2022-06-21] MEDS: Famotidine 20 MG TAB PO SCH (08:46)
[2022-06-21] MEDS: Insulin Glargine 30 UNITS/0.3 ML VIAL SC SCH ×2 (08:46→21:33)
[2022-06-21] MEDS: NIFEdipine XL 60 MG TAB PO SCH (08:48)
[2022-06-21] MEDS ORDERED: Furosemide 100 MG, Admixture Fee 1 EACH in Sodium Chloride 0.9% 90 ML IVPB SCH (12:30)
[2022-06-21] MEDS: HumaLOG 300 UNITS/3 ML VIAL SC PRN ×3 (12:59→21:34)
[2022-06-21] MEDS: cefTRIAXone\\ROCEPHIN 1 GM in Sodium Chloride 0.9% 100 ML IVPB SCH (20:28)
[2022-06-21] MEDS: Gabapentin 100 MG CAP PO SCH (21:30)
[2022-06-21] MEDS: Rosuvastatin 20 MG TAB PO SCH (21:31)
[2022-06-22] MEDS: Levothyroxine Sodium 100 MCG TAB PO SCH (05:29)
[2022-06-22 05:32] LABS: #Eosinphils 0.2 thou/uL (0.0-0.7); #Lymphocytes 1.4 thou/uL (1.20-3.40); #Monocytes 1.2 thou/uL (0.11-0.59); #Neutrophils 8.4 thou/uL (1.40-6.50); %Basophils 0.2 % (0.0-1.0); %Eosinophils 1.6 % (0.0-10.0); %Lymphocytes 12.3 % (21.0-51.0); %Monocytes 10.9 % (0.0-10.0); %Neutrophils 75.1 % (42.0-75.0); Hemoglobin 11.5 g/dL (14.0-18.0); Mean Corpuscular HGB CONC 33.5 g/dL (32.0-36.0); Mean Corpuscular Hemoglobin 29.4 pg (27.0-31.0); Mean Corpuscular Volume 87.8 fl (78.0-98.0); Mean Platelet Volume 7.8 fL (7.4-10.4); Platelet Count 205 10x3/uL (130-400); RBC Distribution Width 13.6 % (11.5-14.5); Red Blood Cell (RBC) Count 3.91 mill/uL (4.70-6.10); White Blood Cell (WBC) Count 11.2 10x3/uL (4.8-10.8)
[2022-06-22 06:10] LABS: Anion Gap 15 mmol/L (10-20); BUN (Urea Nitrogen) 46 mg/dL (8.4-25.7); Calc. Creatinine Clearance 21 mL/min (70-130); Calcium 8.1 mg/dL (7.8-10.44); Carbon Dioxide 20 mmol/L (23-31); Chloride 102 mmol/L (98-107); Estimated GFR 9; Glucose 200 mg/dL (80-115); Potassium 3.8 mmol/L (3.5-5.1); Sodium 133 mmol/L (136-145)
[2022-06-22] MEDS: HumaLOG 300 UNITS/3 ML VIAL SC PRN ×4 (06:50→21:06)
[2022-06-22] MEDS: Amiodarone 200 MG TAB PO SCH (10:12)
[2022-06-22] MEDS: Escitalopram Oxalate 10 mg Tablet PO SCH (10:12)
[2022-06-22] MEDS: NIFEdipine XL 60 MG TAB PO SCH (10:12)
[2022-06-22] MEDS: Famotidine 20 MG TAB PO SCH (10:12)
[2022-06-22] MEDS: busPIRone HCl 10 MG TAB PO SCH ×2 (10:13→20:56)
[2022-06-22] MEDS: Insulin Glargine 30 UNITS/0.3 ML VIAL SC SCH ×2 (10:13→21:08)
[2022-06-22] MEDS ORDERED: Bumetanide 1 MG/4 ML VIAL IVP SCH (19:00)
[2022-06-22] MEDS: Rosuvastatin 20 MG TAB PO SCH (20:55)
[2022-06-22] MEDS: Gabapentin 100 MG CAP PO SCH (20:56)
[2022-06-22] MEDS: cefTRIAXone\\ROCEPHIN 1 GM in Sodium Chloride 0.9% 100 ML IVPB SCH (20:58)
[2022-06-23] MEDS: Levothyroxine Sodium 100 MCG TAB PO SCH (05:14)
[2022-06-23 06:34] LABS: Anion Gap 13 mmol/L (10-20); BUN (Urea Nitrogen) 45 mg/dL (8.4-25.7); Calc. Creatinine Clearance 19 mL/min (70-130); Calcium 8.3 mg/dL (7.8-10.44); Carbon Dioxide 22 mmol/L (23-31); Chloride 101 mmol/L (98-107); Estimated GFR 8; Glucose 223 mg/dL (80-115); Potassium 4.1 mmol/L (3.5-5.1); Sodium 132 mmol/L (136-145)
[2022-06-23] MEDS: NIFEdipine XL 60 MG TAB PO SCH (08:47)
[2022-06-23] MEDS: busPIRone HCl 10 MG TAB PO SCH ×2 (08:49→20:54)
[2022-06-23] MEDS: Famotidine 20 MG TAB PO SCH (08:49)
[2022-06-23] MEDS: Insulin Glargine 30 UNITS/0.3 ML VIAL SC SCH ×2 (08:49→20:55)
[2022-06-23] MEDS: Escitalopram Oxalate 10 mg Tablet PO SCH (08:49)
[2022-06-23] MEDS: Amiodarone 200 MG TAB PO SCH (08:49)
[2022-06-23] MEDS: Aspirin 81 mg Enteric Coated Tablet PO SCH (08:51)
[2022-06-23] MEDS: Apixaban 5 MG TAB PO SCH ×2 (08:51→20:54)
[2022-06-23] MEDS: HumaLOG 300 UNITS/3 ML VIAL SC PRN ×3 (12:52→20:56)
[2022-06-23] MEDS ORDERED: HYDROcodone/Acetaminophen 5/325 mg Tablet PO PRN (13:46)
[2022-06-23] MEDS: Gabapentin 100 MG CAP PO SCH (20:54)
[2022-06-23] MEDS: cefTRIAXone\\ROCEPHIN 1 GM in Sodium Chloride 0.9% 100 ML IVPB SCH (20:55)
[2022-06-23] MEDS: Rosuvastatin 20 MG TAB PO SCH (20:55)
[2022-06-24] MEDS: Levothyroxine Sodium 100 MCG TAB PO SCH (05:33)
[2022-06-24] MEDS: HumaLOG 300 UNITS/3 ML VIAL SC PRN ×4 (05:34→20:47)
[2022-06-24 08:49] LABS: #Eosinphils 0.2 thou/uL (0.0-0.7); #Lymphocytes 1.7 thou/uL (1.20-3.40); #Monocytes 0.9 thou/uL (0.11-0.59); #Neutrophils 6.2 thou/uL (1.40-6.50); %Basophils 0.1 % (0.0-1.0); %Eosinophils 2.1 % (0.0-10.0); %Lymphocytes 18.7 % (21.0-51.0); %Monocytes 10.4 % (0.0-10.0); %Neutrophils 68.7 % (42.0-75.0); Hemoglobin 11.6 g/dL (14.0-18.0); Mean Corpuscular HGB CONC 32.6 g/dL (32.0-36.0); Mean Corpuscular Hemoglobin 29.1 pg (27.0-31.0); Mean Corpuscular Volume 89.2 fl (78.0-98.0); Mean Platelet Volume 7.7 fL (7.4-10.4); Platelet Count 235 10x3/uL (130-400); RBC Distribution Width 13.6 % (11.5-14.5); Red Blood Cell (RBC) Count 4.01 mill/uL (4.70-6.10)
[2022-06-24] MEDS: NIFEdipine XL 60 MG TAB PO SCH (08:55)
[2022-06-24] MEDS: Aspirin 81 mg Enteric Coated Tablet PO SCH (08:55)
[2022-06-24] MEDS: Apixaban 5 MG TAB PO SCH ×2 (08:56→20:46)
[2022-06-24] MEDS: Amiodarone 200 MG TAB PO SCH (08:56)
[2022-06-24] MEDS: Famotidine 20 MG TAB PO SCH (08:56)
[2022-06-24] MEDS: Insulin Glargine 30 UNITS/0.3 ML VIAL SC SCH ×3 (08:56→20:47)
[2022-06-24] MEDS: busPIRone HCl 10 MG TAB PO SCH ×2 (08:56→20:46)
[2022-06-24] MEDS: Escitalopram Oxalate 10 mg Tablet PO SCH (08:56)
[2022-06-24 09:09] LABS: Anion Gap 16 mmol/L (10-20); BUN (Urea Nitrogen) 45 mg/dL (8.4-25.7); Calc. Creatinine Clearance 19 mL/min (70-130); Calcium 8.3 mg/dL (7.8-10.44); Carbon Dioxide 21 mmol/L (23-31); Chloride 102 mmol/L (98-107); Estimated GFR 8; Glucose 264 mg/dL (80-115); Potassium 4.5 mmol/L (3.5-5.1); Sodium 134 mmol/L (136-145)
[2022-06-24] MEDS ORDERED: Insulin Glargine 30 UNITS/0.3 ML VIAL SC SCH (10:15)
[2022-06-24] MEDS: Cefdinir 300 MG CAP PO SCH (14:52)
[2022-06-24] MEDS: Rosuvastatin 20 MG TAB PO SCH (20:45)
[2022-06-24] MEDS: Gabapentin 100 MG CAP PO SCH (20:46)
[2022-06-25] MEDS: Levothyroxine Sodium 100 MCG TAB PO SCH (05:48)
[2022-06-25 07:24] VITALS: BP 126/70; TEMP 97.4
[2022-06-25] MEDS: Escitalopram Oxalate 10 mg Tablet PO SCH (08:13)
[2022-06-25] MEDS: Insulin Glargine 30 UNITS/0.3 ML VIAL SC SCH (08:13)
[2022-06-25] MEDS: Amiodarone 200 MG TAB PO SCH (08:13)
[2022-06-25] MEDS: Aspirin 81 mg Enteric Coated Tablet PO SCH (08:13)
[2022-06-25] MEDS: NIFEdipine XL 60 MG TAB PO SCH (08:13)
[2022-06-25] MEDS: busPIRone HCl 10 MG TAB PO SCH (08:13)
[2022-06-25] MEDS: Apixaban 5 MG TAB PO SCH (08:14)
[2022-06-25] MEDS: Famotidine 20 MG TAB PO SCH (08:14)
[2022-06-25 08:21] LABS: #Eosinphils 0.1 thou/uL (0.0-0.7); #Lymphocytes 1.7 thou/uL (1.20-3.40); #Monocytes 0.7 thou/uL (0.11-0.59); #Neutrophils 7.5 thou/uL (1.40-6.50); %Basophils 0.5 % (0.0-1.0); %Eosinophils 1.5 % (0.0-10.0); %Lymphocytes 16.5 % (21.0-51.0); %Monocytes 6.8 % (0.0-10.0); %Neutrophils 74.8 % (42.0-75.0); Hemoglobin 12.3 g/dL (14.0-18.0); Mean Corpuscular HGB CONC 33.2 g/dL (32.0-36.0); Mean Corpuscular Hemoglobin 29.7 pg (27.0-31.0); Mean Corpuscular Volume 89.5 fl (78.0-98.0); Mean Platelet Volume 7.4 fL (7.4-10.4); Platelet Count 270 10x3/uL (130-400); RBC Distribution Width 13.8 % (11.5-14.5); Red Blood Cell (RBC) Count 4.13 mill/uL (4.70-6.10)
[2022-06-25 08:34] LABS: Anion Gap 17 mmol/L (10-20); BUN (Urea Nitrogen) 44 mg/dL (8.4-25.7); Calc. Creatinine Clearance 20 mL/min (70-130); Calcium 8.6 mg/dL (7.8-10.44); Carbon Dioxide 18 mmol/L (23-31); Chloride 104 mmol/L (98-107); Estimated GFR 9; Glucose 138 mg/dL (80-115); Potassium 4.7 mmol/L (3.5-5.1); Sodium 134 mmol/L (136-145)
[2022-06-25] MEDS: Cefdinir 300 MG CAP PO SCH (14:37)
== END 2022-06-25 15:32 | disposition home or self-care (01) | DRG 682 ==
LOC: ERS 06:35 → NEURO 10:08 → OBSVTOIN 06-14 14:22 → T4-B 06-22 14:20
PROVIDERS: ADMIT Internal Medicine; ATTEND Hospitalist
DX: N17.9 Acute kidney failure, unspecified (principal); A41.51 Sepsis due to Escherichia coli [E. coli]; G45.9 Transient cerebral ischemic attack, unspecified; Z68.41 Body mass index [BMI] 40.0-44.9, adult; E87.1 Hypo-osmolality and hyponatremia; K81.0 Acute cholecystitis; R47.01 Aphasia; N39.0 Urinary tract infection, site not specified; E87.20 Acidosis, unspecified; Z20.822 Contact with and (suspected) exposure to COVID-19; E66.9 Obesity, unspecified; I48.91 Unspecified atrial fibrillation; E03.9 Hypothyroidism, unspecified; I25.10 Atherosclerotic heart disease of native coronary artery without angina pectoris; D69.6 Thrombocytopenia, unspecified; E11.22 Type 2 diabetes mellitus with diabetic chronic kidney disease; I12.9 Hypertensive chronic kidney disease with stage 1 through stage 4 chronic kidney disease, or unspecified chronic kidney disease; N18.30 Chronic kidney disease, stage 3 unspecified; E83.39 Other disorders of phosphorus metabolism; Z88.8 Allergy status to other drugs, medicaments and biological substances; Z91.013 Allergy to seafood; Z91.041 Radiographic dye allergy status; Z79.84 Long term (current) use of oral hypoglycemic drugs; Z79.01 Long term (current) use of anticoagulants; Z79.899 Other long term (current) drug therapy; Z95.5 Presence of coronary angioplasty implant and graft; Z90.49 Acquired absence of other specified parts of digestive tract
CPT/HCPCS: 36415; 36416; 70450; 70551; 71045; 74176; 76705; 76770; 80048; 80053; 80061; 80069; 80076; 81001; 83036; 83605; 83735; 83880; 84100; 84484; 85025; 87040; 87077; 87086; 87149; 87186; 87804; 87811; 93005; 93010; 93306; 94640; 96360; 96361; 96365; 96375; G0378; J0696; J1815; J2405; J2543; J3475; J3490; J7050; J7070; J7120; J7620; U0003; U0005

== ENCOUNTER 2022-07-04 02:11 | Emergency (ER) | payer MEDICARE ==
[2022-07-04 02:51] LABS: #Basophils 0.1 thou/uL (0.0-0.2); #Eosinphils 0.1 thou/uL (0.0-0.7); #Lymphocytes 1.4 thou/uL (1.20-3.40); #Monocytes 0.6 thou/uL (0.11-0.59); #Neutrophils 3.3 thou/uL (1.40-6.50); %Basophils 1.2 % (0.0-1.0); %Eosinophils 2.1 % (0.0-10.0); %Lymphocytes 25.3 % (21.0-51.0); %Monocytes 10.9 % (0.0-10.0); %Neutrophils 60.5 % (42.0-75.0); Hemoglobin 10.3 g/dL (14.0-18.0); Mean Corpuscular HGB CONC 33.6 g/dL (32.0-36.0); Mean Corpuscular Hemoglobin 30.6 pg (27.0-31.0); Mean Corpuscular Volume 91.3 fl (78.0-98.0); Mean Platelet Volume 8.7 fL (7.4-10.4); Platelet Count 142 10x3/uL (130-400); Red Blood Cell (RBC) Count 3.35 mill/uL (4.70-6.10); White Blood Cell (WBC) Count 5.4 10x3/uL (4.8-10.8)
[2022-07-04 02:54] LABS: Bacteria/HPF None Seen HPF (None Seen); Bilirubin Negative (Negative); Blood, Urine 2+ (Negative); Clarity Clear (Clear); Glucose, Urine (Dipstick) 500 mg/dL (Negative); Ketone, Urine Negative (Negative); Leukocyte Negative Leu/uL (Negative); Nitrite Negative (Negative); Protein, Urine (Dipstick) Negative (Neg-Trace); Squamous Epithelial None Seen HPF (0-3); Urobilinogen Normal mg/dL (Less than 2); WBC/HPF 0-3 HPF (0-3); pH, Urine 5.5 (5.0-9.0)
[2022-07-04 03:12] LABS: ALT (SGPT) 207 U/L (8-55); AST (SGOT) 247 U/L (5-34); Albumin 3.5 g/dL (3.4-4.8); Alkaline Phosphatase 305 U/L (40-110); Anion Gap 13 mmol/L (10-20); BUN (Urea Nitrogen) 50 mg/dL (8.4-25.7); Bilirubin, Total 0.5 mg/dL (0.2-1.2); Calc. Creatinine Clearance 0 mL/min (70-130); Calcium 8.7 mg/dL (7.8-10.44); Carbon Dioxide 21 mmol/L (23-31); Chloride 107 mmol/L (98-107); Estimated GFR 11; Glucose 221 mg/dL (80-115); Potassium 4.8 mmol/L (3.5-5.1); Protein, Total 7.5 g/dL (5.8-8.1); Sodium 136 mmol/L (136-145)
== END 2022-07-04 05:30 | disposition home or self-care (01) ==
LOC: ERS 02:11
DX: R31.9 Hematuria, unspecified (principal); N17.9 Acute kidney failure, unspecified; E78.00 Pure hypercholesterolemia, unspecified; I10 Essential (primary) hypertension; E03.9 Hypothyroidism, unspecified; E66.9 Obesity, unspecified; E11.9 Type 2 diabetes mellitus without complications
CPT/HCPCS: 36415; 80053; 81003; 81015; 85025; 87086; 93005

== ENCOUNTER 2023-07-06 12:22 | Observation (INO) | payer MEDICARE ==
[2023-07-06] MEDS ORDERED: Meclizine HCl 25 MG TAB ONE (12:42)
[2023-07-06] MEDS ORDERED: Ondansetron PF 4 MG/2 ML Vial ONE (12:43)
[2023-07-06 12:49] LABS: #Basophils 0.1 thou/uL (0.0-0.2); #Eosinphils 0.1 thou/uL (0.0-0.7); #Monocytes 0.6 thou/uL (0.11-0.59); #Neutrophils 4.3 thou/uL (1.40-6.50); %Basophils 0.7 % (0.0-1.0); %Eosinophils 1.8 % (0.0-10.0); %Monocytes 8.3 % (0.0-10.0); %Neutrophils 64.1 % (42.0-75.0); Hematocrit 38.4 % (42.0-52.0); Hemoglobin 13.5 g/dL (14.0-18.0); Mean Corpuscular HGB CONC 35.2 g/dL (32.0-36.0); Mean Corpuscular Hemoglobin 30.1 pg (27.0-31.0); Mean Corpuscular Volume 85.5 fl (78.0-98.0); Mean Platelet Volume 10.2 fL (7.4-10.4); Platelet Count 178 10x3/uL (130-400); RBC Distribution Width 12.4 % (11.5-14.5); Red Blood Cell (RBC) Count 4.49 mill/uL (4.70-6.10); White Blood Cell (WBC) Count 6.8 10x3/uL (4.8-10.8)
[2023-07-06 13:09] LABS: Anion Gap 11 mmol/L (10-20); BUN (Urea Nitrogen) 25 mg/dL (8.4-25.7); Calc. Creatinine Clearance 0 mL/min (70-130); Carbon Dioxide 27 mmol/L (23-31); Chloride 99 mmol/L (98-107); Potassium 4.3 mmol/L (3.5-5.1); Sodium 133 mmol/L (136-145)
[2023-07-06 13:10] LABS: ALT (SGPT) 26 U/L (8-55); AST (SGOT) 28 U/L (5-34); Albumin 3.8 g/dL (3.4-4.8); Alkaline Phosphatase 71 U/L (40-110); Bilirubin, Total 0.7 mg/dL (0.2-1.2); Calcium 9.8 mg/dL (7.8-10.44); Estimated GFR 44; Globulin 3.3 g/dL (2.4-3.5); Lipase 65 U/L (8-78); Protein, Total 7.1 g/dL (5.8-8.1)
[2023-07-06 13:13] LABS: Troponin I Less than 0.010 ng/mL (< 0.028)
[2023-07-06 13:22] LABS: Glucose 469 mg/dL (80-115)
[2023-07-06] MEDS ORDERED: hydrALAZINE 20 MG/ML VIAL SLOW IVP PRN (16:18)
[2023-07-06] MEDS ORDERED: Aspirin Chewable 81 MG TAB ONE (16:21)
[2023-07-06] MEDS ORDERED: Dextrose 5% in Water 1,000 ML IV PRN (16:29)
[2023-07-06] MEDS ORDERED: Dextrose 50% Abboject 50 ML SYRINGE SLOW IVP PRN (16:29)
[2023-07-06] MEDS ORDERED: Glucagon 1 MG/ML KIT IM PRN (16:29)
[2023-07-06] MEDS ORDERED: HumaLOG 300 UNITS/3 ML VIAL SC PRN (16:29)
[2023-07-06 18:21] VITALS: BMI 42.3
[2023-07-06] MEDS: Sodium Chloride 0.9% 1,000 ML IV SCH (18:43)
[2023-07-06] MEDS: Gabapentin 100 MG CAP PO SCH (22:07)
[2023-07-06] MEDS: Insulin Glargine 30 UNITS/0.3 ML VIAL SC SCH (22:07)
[2023-07-06] MEDS: Apixaban 5 MG TAB PO SCH (22:08)
[2023-07-06] MEDS: Atorvastatin Calcium 40 MG TAB PO SCH (22:08)
[2023-07-07 05:21] LABS: #Basophils 0.1 thou/uL (0.0-0.2); #Eosinphils 0.2 thou/uL (0.0-0.7); #Monocytes 0.8 thou/uL (0.11-0.59); #Neutrophils 3.9 thou/uL (1.40-6.50); %Basophils 0.8 % (0.0-1.0); %Eosinophils 3.1 % (0.0-10.0); %Lymphocytes 31.9 % (21.0-51.0); %Monocytes 10.6 % (0.0-10.0); %Neutrophils 53.5 % (42.0-75.0); Hematocrit 37.6 % (42.0-52.0); Hemoglobin 12.9 g/dL (14.0-18.0); Mean Corpuscular HGB CONC 34.3 g/dL (32.0-36.0); Mean Corpuscular Hemoglobin 29.5 pg (27.0-31.0); Platelet Count 156 10x3/uL (130-400); RBC Distribution Width 12.5 % (11.5-14.5); Red Blood Cell (RBC) Count 4.37 mill/uL (4.70-6.10); White Blood Cell (WBC) Count 7.2 10x3/uL (4.8-10.8)
[2023-07-07] MEDS: Levothyroxine Sodium 100 MCG TAB PO SCH (05:34)
[2023-07-07 06:05] LABS: Anion Gap 10 mmol/L (10-20); BUN (Urea Nitrogen) 27 mg/dL (8.4-25.7); Calc. Creatinine Clearance 99 mL/min (70-130); Calcium 9.2 mg/dL (7.8-10.44); Carbon Dioxide 27 mmol/L (23-31); Cardiac Risk 2.3 (Less than 4.5); Chloride 102 mmol/L (98-107); Cholesterol 72 mg/dl (< 200 Desired); Estimated GFR 58; Glucose 242 mg/dL (80-115); HDL Cholesterol 31 mg/dL (>60 Neg Risk); LDL Cholesterol, Calculated 15 mg/dL; Potassium 3.7 mmol/L (3.5-5.1); Sodium 135 mmol/L (136-145); Triglycerides 131 mg/dL (Less than 150)
[2023-07-07] MEDS: Lorazepam 0.5 MG TAB PO SCH (07:11)
[2023-07-07] MEDS: Aspirin 325 mg Enteric Coated Tablet PO SCH (09:01)
[2023-07-07] MEDS: Amiodarone 200 MG TAB PO SCH (09:01)
[2023-07-07 11:33] VITALS: BP 152/84; TEMP 97.8
== END 2023-07-07 13:07 | disposition home or self-care (01) ==
LOC: ERS 12:22 → 2SW 16:02 → ERHOLD 16:02 → 2SW 21:26
PROVIDERS: ADMIT Internal Medicine; ATTEND Physician Assistant
DX: G45.9 Transient cerebral ischemic attack, unspecified (principal); I48.91 Unspecified atrial fibrillation; R41.0 Disorientation, unspecified; I25.10 Atherosclerotic heart disease of native coronary artery without angina pectoris; E11.9 Type 2 diabetes mellitus without complications; E78.5 Hyperlipidemia, unspecified; E03.9 Hypothyroidism, unspecified; N17.9 Acute kidney failure, unspecified; E66.9 Obesity, unspecified; Z68.41 Body mass index [BMI] 40.0-44.9, adult; Z79.01 Long term (current) use of anticoagulants; Z88.6 Allergy status to analgesic agent; Z91.041 Radiographic dye allergy status; Z91.013 Allergy to seafood; Z79.82 Long term (current) use of aspirin; Z79.890 Hormone replacement therapy; Z79.899 Other long term (current) drug therapy; Z90.49 Acquired absence of other specified parts of digestive tract; Z79.4 Long term (current) use of insulin; W19.XXXA Unspecified fall, initial encounter
CPT/HCPCS: 70450; 70551; 80048; 80053; 80061; 82962 ×2; 83690; 84484; 85025 ×2; 93005; 93880; 95711; 95819; G0378 ×3; 36415; 36416; J1815; J2405; J7050